=== PATIENT | male | born 1985 | race Caucasian/White ===

== ENCOUNTER 2024-01-01 17:50 | Emergency (ER) | payer OTHER ==
[~2024-01-01] VITALS: Ht 177.8 cm; Wt 86.7 kg
[2024-01-01 18:03] VITALS: BP 122/87; PULSE 105; RESP 22; TEMP 99.4; O2SAT 99
[2024-01-01 20:01] VITALS: BP 123/82
[2024-01-01] MEDS: NACL 0.9% 1,000 ML IV ONE (20:54)
[2024-01-01] MEDS: metroNIDAZOLE 500 MG/NS PREMIX 100 ML IV ONE (21:12)
[2024-01-01 22:30] VITALS: O2SAT 99
[2024-01-01] MEDS ORDERED: METR-435 PO (22:41)
[2024-01-01 22:44] VITALS: PULSE 99; RESP 16; TEMP 99.9
== END 2024-01-01 22:44 | disposition home or self-care (01) ==
LOC: MED 17:50
DX: A08.8 Other specified intestinal infections (principal); Z79.899 Other long term (current) drug therapy
CPT/HCPCS: 36415; 87040; 96365; 99284; J3490; J7030